=== PATIENT | male | born 1990 | race Two or more races ===

== ENCOUNTER 2018-03-30 01:01 | Emergency (ER) | payer MEDICAID, OTHER ==
[~2018-03-30] VITALS: Ht 170.2 cm; Wt 99.8 kg
[2018-03-30] MEDS ORDERED: ACETYLCYSTEINE ORAL for CIN 20%(200MG/ML) 4ML PO ONE (01:45)
[2018-03-30 02:24] LABS: Basophils # (auto) 0 uL; Basophils % (auto) 0.6 % (0.0-2.0); Eosinophils # (auto) 0.1 uL; Eosinophils % (auto) 1.6 % (0.0-7.0); Hematocrit 55.3 % (41.0-53.0); Hemoglobin 19.1 g/dL (13.5-17.5); Lymphocytes # (auto) 1.8 uL; Mean Corpuscular Hemoglobin 29.4 pg (28.0-32.0); Mean Corpuscular Hgb Conc. 34.5 g/dL (32.0-36.0); Mean Corpuscular Volume 85.4 fL (80.0-100.0); Monocytes # (auto) 0.5 uL; Monocytes % (auto) 5.9 % (0.0-12.0); Neutrophils # (auto) 5.7 uL; Neutrophils % (auto) 69.9 % (37.0-80.0); Nucleated Red Blood Cells % 0.2 %; Platelet Count (auto) 294 10^3/uL (140-450); Red Blood Cells 6.48 10^6/uL (4.5-5.90); Red Cell Distribution Width 13.9 % (11.8-14.3); White Blood Cell 8.1 10^3/uL (4.4-10.8)
[2018-03-30 02:32] LABS: Urine Bacteria FEW /hpf (None Seen); Urine Blood Negative /uL (Negative); Urine Specific Gravity 1.013 (1.001-1.035); Urine WBC <1 /hpf (0 - 3)
[2018-03-30 02:38] LABS: Albumin 4.5 g/dL (3.4-5.0); Calcium 8.8 mg/dL (8.5-10.1); Magnesium 2.4 mg/dL (1.6-2.6)
[2018-03-30 02:39] LABS: Amphetamine Screen, Urine POSITIVE (NEGATIVE); Barbiturate Scree,Urine NEGATIVE (NEGATIVE); Benzodiazephine Screen, Urine NEGATIVE (NEGATIVE); Cannabinoid Screen, Urine NEGATIVE (NEGATIVE); Cocaine Screen, Urine NEGATIVE (NEGATIVE); Opiate Scree,Urine NEGATIVE (NEGATIVE); Phencyclidine Screen, Urine NEGATIVE (NEGATIVE)
[2018-03-30 02:40] LABS: Acetaminophen 9.7 ug/mL (10-30); BUN/Creatinine Ratio 12.2; Salicylate < 1.7 mg/dL (2.8-20.0)
[2018-03-30 02:43] LABS: Bilirubin, Total 0.8 mg/dL (0.2-1.0); Total Protein 8.6 g/dL (6.4-8.2)
[2018-03-30] MEDS ORDERED: ACETYLCYSTEINE 20%(200MG/ML) SOLN 30ML ONE (02:52)
[2018-03-30] MEDS ORDERED: ACETYLCYSTEINE 20%(200MG/ML) SOLN 30ML PO ONE (03:00)
[2018-03-30 04:53] VITALS: BP 130/78
== END 2018-03-30 05:07 | disposition home or self-care (01) ==
LOC: EDBD 01:01 → ER 01:01
DX: R41.82 Altered mental status, unspecified (principal); G92 Toxic encephalopathy; F10.129 Alcohol abuse with intoxication, unspecified; F15.10 Other stimulant abuse, uncomplicated; F41.9 Anxiety disorder, unspecified
CPT/HCPCS: 36415; 80053; 80307; 80320; 80329; 81001; 83735; 85025; 93005

== ENCOUNTER 2024-12-20 06:40 | Emergency (ER) | payer MEDICAID ==
[~2024-12-20] VITALS: Ht 180.3 cm; Wt 100.0 kg
--- NOTE | 2024-12-20 07:06 | ED.PDOC ---
History of Present Illness HPI Comments 34 y/o Maldivian speaking M is BIBA from private residence for c/c of RUQ abdominal pain and nausea. Per EMS personnel report, patient called, endorsing on sudden, unprovoked, and atraumatic onset of 10/10 pain, which awoke him from his sleep, 2 hours ago, this morning. Pain is stated to radiate to the left side of his abdomen, now. Denies any vomiting, diarrhea, constipation, urinary problems, or further associated symptoms. Significant history of gallbladder- related issues. He was stated to have had recent hospital admission with pending consultation for surgical intervention for aforementioned gallbladder issue but reported on leaving AMA. Last reported meal was 'greasy tacos,' last night. Chief Complaint: Abdominal Pain Time Seen by MD: 06:50 Reviewed Notes: Nurses Notes, Tracer Lathe Set Up Operator Notes, Medications, Allergies Allergies: Coded Allergies: NO KNOWN ALLERGIES (Unverified , 03/30/18) Information Source: Patient, Emergency Med Personnel Mode of Arrival: EMS Severity: Moderate Timing: Hours Duration: Since onset Prehospital treatment: 12 Lead EKG, Drilling Supervisor Past Medical History Past Medical History (Other): Unspecified gallbladder-issue Surgical History: Denies all surgeries Family History Family History: Unknown Social History Smoker: Non-Smoker Alcohol: Heavy Drugs: Methamphetamine Lives In: Home All Other Systems: Reviewed and Negative (Comprehensive review of systems are negative unless stated in HPI) Physical Exam General Appearance: Moderate Distress HEENT: Normal ENT Inspection, Pharynx Normal, TMs Normal Neck: Full Range of Motion, Non-Tender, Normal, Normal Inspection Respiratory: Chest Non-Tender, Lungs Clear, No Accessory Muscle Use, No Respiratory Distress, Normal Breath Sounds Cardiovascular: No Edema, No JVD, No Murmur, No Gallop, Normal Peripheral Pulses, Regular Rate/Rhythm Breast Exam: Deferred Gastrointestinal: Diffuse, No Organomegaly, No Pulsatile Mass, Normal Bowel Sounds, Soft Genitalia: Deferred Pelvic: Deferred Rectal: Deferred Extremities: No calf tenderness, Normal capillary refill, Normal inspection, Normal range of motion, Non-tender, No pedal edema Musculoskeletal : Apperance: Normal Neurologic: Alert, gear tester II-XII nml as Tested, No Motor Deficits, Normal Affect, Normal Mood, No Sensory Deficits Cerebellar Function: NOT DONE Reflexes: NOT DONE Skin: Dry, Normal Color, Warm Peripheral Pulses: 3+ Radial (R), 3+ Radial (L) Lymphatic: No Adenopathy Was a procedure done? Was a procedure done?: No Differential Dx Considerations may include: Cholelithiasis, cholecystitis, gastritis, gastroenteritis, GERD, nephrolithi asis, pyelonephritis, cystitis, musculoskeletal pain, among others. X-Ray, Labs, Meds, VS Vital Signs Date Time Temp Pulse Resp B/P (MAP) Pulse Ox O2 Delivery O2 Flow Rate FiO2 12/20/24 07:00 68 12/20/24 06:52 98.8 107 22 170/108 98 98.8 Patient alert. Complaining of abdominal pain. Blood pressure elevated. Vitals stable. Blood pressure elevation could be from pain. Establish intravenous access. Was given fluids pain Was given pain medication. Was given Zofran. Explained to the patient. Continue monitoring. Time of 1ST Reevaluation: 07:20 Reevaluation 1ST: Unchanged Patient Education/Counseling: Diagnosis, Treatment Family Education/Counseling: No Family Present SEPSIS Sepsis Screen Date sepsis recognized/suspect: Dec 20, 2024 Time Sepsis recognized/suspect: 651 Recent Procedure: No On Antibiotic Therapy: No Respiratory Rate >20: No Heart Rate >90: No Temp<36 C (96.8 F) or >38.3 C: No SBP <90 or MAP <65 mmHG: No New Acute Mental Status Change: No Is the patient on CPAP, BIPAP,: No Physician Orders Electrocardigram (12/20/24 07:03) Complete Blood Count (12/20/24 07:06) Comprehensive Metabolic Panel (12/20/24 07:06) Urinalysis (12/20/24 07:06) Sodium Chloride 0.9% (12/20/24 07:15) Vital Signs Date Time Temp Pulse Resp B/P (MAP) Pulse Ox O2 Delivery O2 Flow Rate FiO2 12/20/24 07:00 68 12/20/24 06:52 98.8 107 22 170/108 98 98.8 Departure 1 Departure Time of Disposition: 07:40 Impression: Primary Impression: Acute abdominal pain Disposition: 09 ADMITTED INPATIENT Admit to: Med Surg Condition: Guarded Critical Care Note Critical Care Time?: Yes (90 min-critical care time only) Critical care comment: Acute pain Stability Stability form required: No Heart Score Heart Score: Heart Score Response (Comments) Value History N/A 0 EKG N/A 0 Age N/A 0 Risk Factors N/A 0 Troponin N/A 0 Total 0 I personally scribed for ALICIA GO MD ([email or web address]) on 12/20/24 at 07:06. Electronically submitted by Ja Avalos ([email or web address]). ALICIA GO MD Dec 20, 2024 07:06
[2024-12-20] MEDS ORDERED: KETOROLAC TROMETH 30 MG/ML 1ML VIAL IV ONE (07:15)
[2024-12-20] MEDS ORDERED: ONDANSETRON HCL 4 MG/2 ML VIAL IV ONE (07:15)
[2024-12-20 07:48] LABS: Hematocrit 50.7 % (41.0-53.0); Hemoglobin 17.2 g/dL (13.5-17.5); Mean Corpuscular Hemoglobin 29.0 pg (28.0-32.0); Mean Corpuscular Volume 85.8 fL (80.0-100.0); Nucleated Red Blood Cells % 0.1 %
[2024-12-20 08:02] LABS: Alanine Aminotransferase 38 U/L (7-40); Albumin 4.5 g/dL (3.2-4.8); Anion Gap 12 (5-15); BUN/Creatinine Ratio 9.2 (10.0-20.0); Calcium 9.7 mg/dL (8.7-10.4); Carbon Dioxide 26 mmol/L (20-31); Chloride 101 mmol/L (98-107); Glucose 94 mg/dL (74-106); Potassium 3.7 mmol/L (3.5-5.1); Sodium 139 mmol/L (136-145); Total Protein 7.7 g/dL (5.7-8.2)
[2024-12-20 08:03] LABS: Bilirubin, Total 0.4 mg/dL (0.2-1.0)
[2024-12-20 08:05] LABS: Alkaline Phosphatase 122 U/L (46-116); Blood Urea Nitrogen 9 mg/dL (9-23)
[2024-12-20] MEDS: SODIUM CHLORIDE 0.9% 1,000 ML IV ONE (08:10)
[2024-12-20] MEDS: KETOROLAC TROMETH 30 MG/ML 1ML VIAL IM ONE (08:37)
[2024-12-20] MEDS: ONDANSETRON ODT 4 MG TAB PO ONE (08:37)
[2024-12-20] MEDS: HYDROcodone-ACET 10/325MG TAB PO ONE (08:47)
[2024-12-20 10:54] LABS: Urine Protein, UAD Negative (Negative)
[2024-12-20 10:55] VITALS: BP 142/67; TEMP 98
[2024-12-20 10:59] VITALS: PULSE 76; RESP 20; O2SAT 99
[2024-12-20 11:06] LABS: Cannabinoid Screen, Urine Pos (NEGATIVE)
[2024-12-20 11:07] LABS: Amphetamine Screen, Urine Pos (NEGATIVE); Barbiturate Scree,Urine Neg (NEGATIVE); Benzodiazephine Screen, Urine Neg (NEGATIVE); Cocaine Screen, Urine Neg (NEGATIVE); Opiate Scree,Urine Neg (NEGATIVE); Phencyclidine Screen, Urine Neg (NEGATIVE)
--- NOTE | 2024-12-21 09:39 | ECG ---
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
== END 2024-12-20 11:04 | disposition home or self-care (01) ==
LOC: EDBD 06:40 → ER 06:40
DX: R10.11 Right upper quadrant pain (principal); F19.90 Other psychoactive substance use, unspecified, uncomplicated; F10.90 Alcohol use, unspecified, uncomplicated; Y90.9 Presence of alcohol in blood, level not specified
CPT/HCPCS: 36415; 80053; 80307; 81001; 85025; 93005; 96360; 96372; 99284; J1885; J7030; Q0162; J2405

== ENCOUNTER 2025-02-23 09:33 | Emergency (ER) | payer MEDICAID ==
[~2025-02-23] VITALS: Ht 170.2 cm; Wt 97.6 kg
[2025-02-23 09:54] VITALS: BP 176/111; PULSE 86; RESP 18; TEMP 86; O2SAT 100
--- NOTE | 2025-02-23 10:46 | ED.PDOC ---
History of Present Illness(SKN HPI Comments This is a 34 year old male presenting to the ED with chief complaint of bite wound. Patient reports that when hiking around 2am this morning, he had sat down on a rock and felt a sharp pain to his right buttock. Patient relays that when he went home, he found that the wound was bleeding with associated pain, swelling, and redness. Patient states that the wound has worsened over time and he is now having associated nausea and dizziness. Patient notes he is worried he may have been bitten by a snake. Patient denies any SOB, headache, chest pain, abdominal pain, or vomiting. Chief Complaint: Wound Check Time Seen by MD: 10:43 History of Present Illness: Nurses Notes, Medications, Allergies Allergies: Coded Allergies: NO KNOWN ALLERGIES (Unverified , 03/30/18) Information Source: Patient Mode of Arrival: Ambulatory Severity: Moderate Timing: Hours Duration: Since onset Prehospital treatment: None Location: Buttock Mechanism: Insect Developed: Other (Swelling, redness) Occurence: Outdoors Object: Unknown Condition of Object: None Retained Foreign Body: No Wound Type: Puncture Immunization Status of Animal: NA Past Medical History PAST MEDICAL HISTORY: Denies Surgical History: Denies all surgeries Family History Family History: Reviewed,noncontributory to illness Social History Smoker: Non-Smoker Alcohol: Heavy Drugs: Methamphetamine Lives In: Home Constitutional: denies: chills, diaphoresis, fatigue, fever, malaise, sweats, weakness, others EENTM: denies: blurred vision, double vision, ear bleeding, ear discharge, ear drainage, ear pain, ear ringing, eye pain, eye redness, hearing loss, mouth pain, mouth swelling, nasal discharge, nose bleeding, nose congestion, nose pa in, photophobia, tearing, throat pain, throat swelling, voice changes, others Respiratory: denies: cough, hemoptysis, orthopnea, SOB at rest, shortness of breath, SOB with excertion, stridor, wheezing, others Cardiovascular: denies: chest pain, dizzy spells, diaphoresis, Dyspnea on exertion, edema, irregular heart beat, left arm pain, lightheadedness, palpitations, PND, syncope, others Gastrointestinal: denies: abdomen distended, abdominal pain, blood streaked bowels, constipated, diarrhea, dysphagia, difficulty swallowing, hematemesis, melena, nausea, poor appetite, poor fluid intake, rectal bleeding, rectal pain, vomiting, others Genitourinary: denies: burning, dysuria, flank pain, frequency, hematuria, incontinence, penile discharge, penile sore, pain, testicle pain, testicle swelling, urgency, others Neurological: denies: dizziness, fainting, headache, left sided numbness, left sided weakness, numbness, paresthesia, pre-existing deficit, right sided numbness, right sided weakness, seizure, speech problems, tingling, tremors, weakness, others Musculoskeletal: denies: back pain, gout, joint pain, joint swelling, muscle pain, muscle stiffness, neck pain, others Integumetry: reports: wounds (to right buttock with surrounding redness); denies: bruises, change in color, change in hair/nails, dryness, laceration, lesions, lumps, rash, others Physical Exam General Appearance: Moderate Distress, Normal HEENT: Normal ENT Inspection, Pharynx Normal, TMs Normal Neck: Full Range of Motion, Non-Tender, Normal, Normal Inspection Respiratory: Chest Non-Tender, Lungs Clear, No Accessory Muscle Use, No Respiratory Distress, Normal Breath Sounds Cardiovascular: No Edema, No JVD, No Murmur, No Gallop, Normal Peripheral Pulses, Regular Rate/Rhythm Breast Exam: Deferred Gastrointestinal: No Organomegaly, Non Tender, No Pulsatile Mass, Normal Bowel Sounds, Soft Genitalia: Deferred Pelvic: Deferred Rectal: Deferred Extremities: No calf tenderness, Normal capillary refill, Normal inspection, Normal range of motion, Non-tender, No pedal edema Musculoskeletal : Apperance: Normal Neurologic: Alert, desktop engineer II-XII nml as Tested, No Motor Deficits, Normal Affect, Normal Mood, No Sensory Deficits Cerebellar Function: Normal Reflexes: Normal Skin: Dry, Normal Color, Warm, Wounds (Right butt cheek) Peripheral Pulses: 3+ Radial (R), 3+ Radial (L) Lymphatic: No Adenopathy Was a procedure done? Was a procedure done?: No Differential Diagnosis (INTG) Differential Diagnosis: Cellulitis, Insect Envenomation, Puncture Wound Differential Diagnosis: Abscess X-Ray, Labs, Meds, VS Vital Signs Date Time Temp Pulse Resp B/P (MAP) Pulse Ox O2 Delivery O2 Flow Rate FiO2 02/23/25 09:54 86.0 86 18 176/111 100 86.0 Patient alert. Vitals stable. Has redness in the right butt cheek 2 cm by 3 cm redness. Saturation pristine on room air. He is anxious. Blood pressure elevated. Was given clonidine. Was given prescription of amoxicillin clindamycin antibiotic. Single port of entry. Has been many hours since he had the injury. Was told to follow up with his primary care physician. Was told to come back if there any problem. Time of 1ST Reevaluation: 11:42 Reevaluation 1ST: Unchanged Patient Education/Counseling: Diagnosis, Treatment Family Education/Counseling: No Family Present SEPSIS Sepsis Screen Date sepsis recognized/suspect: Feb 23, 2025 Time Sepsis recognized/suspect: 953 Recent Procedure: No On Antibiotic Therapy: No Respiratory Rate >20: No Heart Rate >90: No Temp<36 C (96.8 F) or >38.3 C: No SBP <90 or MAP <65 mmHG: No New Acute Mental Status Change: No Is the patient on CPAP, BIPAP,: No Vital Signs Date Time Temp Pulse Resp B/P (MAP) Pulse Ox O2 Delivery O2 Flow Rate FiO2 02/23/25 09:54 86.0 86 18 176/111 100 86.0 Departure 1 Departure Time of Disposition: 11:21 Impression: Primary Impression: Cellulitis Qualified Codes: L03.317 - Cellulitis of buttock Disposition: 01 HOME / SELF CARE / HOMELESS Condition: Good e-Prescriptions Clindamycin Hcl (Clindamycin Hcl) 300 Mg Cap 1 CAP PO TID for 10 Days, #30 CAP Prov: ALICIA GO MD 02/23/25 Amoxicillin Trihydrate (Amoxicillin) 500 Mg Tab 1 TAB PO TID, #30 TAB Prov: ALICIA GO MD 02/23/25 Discharged With: Self Critical Care Note Critical Care Time?: No Stability Stability form required: No Heart Score Heart Score: Heart Score Response (Comments) Value History N/A 0 EKG N/A 0 Age N/A 0 Risk Factors N/A 0 Troponin N/A 0 Total 0 I personally scribed for ALICIA GO MD ([email or web address]) on 02/23/25 at 10:46. Electronically submitted by Kevin Nicole ([email or web address]). ALICIA GO MD Feb 23, 2025 10:46
[2025-02-23] MEDS ORDERED: cefTRIAXone W LIDOCAINE 1 GM IM IM ONE (11:00)
[2025-02-23] MEDS ORDERED: methylPREDNISolone SOD SUCC 125 MG/2 ML VL IM ONE (11:00)
[2025-02-23] MEDS ORDERED: AMOX500T3 PO (11:23)
[2025-02-23] MEDS ORDERED: CLIN1CAP70 PO (11:23)
== END 2025-02-23 11:42 | disposition left against medical advice (07) ==
LOC: ER 09:33
DX: L03.317 Cellulitis of buttock (principal); F10.90 Alcohol use, unspecified, uncomplicated; F19.90 Other psychoactive substance use, unspecified, uncomplicated
CPT/HCPCS: J0696